=== PATIENT | female | born 1995 | race Caucasian/White ===

== ENCOUNTER 2020-03-11 18:30 | Emergency (ER) | payer SELFPAY ==
[~2020-03-11] VITALS: Ht 167.6 cm; Wt 59.0 kg
[2020-03-11 19:49] LABS: HEMATOCRIT 40.3 % (37.0-47.0); MEAN CELL VOLUME 91.8 fl (81.0-99.0); MEAN CORPUSCULAR HGB 31.7 pg (27.0-31.0); MEAN CORPUSCULAR HGB CONC 34.5 g/dl (33.0-37.0); MEAN PLATELET VOLUME 8.6 fl (9.6-12.3); PLATELET COUNT AUTOMATED 169 10*3/uL (130-400); RED BLOOD COUNT 4.39 10*6/uL (4.10-5.10); RED CELL DISTRI WIDTH 12.3 % (0-14.5)
[2020-03-11 19:57] LABS: BILIRUBIN NEGATIVE (NEGATIVE); BLOOD 3+ (NEGATIVE); CLARITY CLEAR (CLEAR); COLOR YELLOW (YELLOW); GLUCOSE NEGATIVE (NEGATIVE); KETONE NEGATIVE (NEGATIVE); LEUKO ESTERASE TRACE (NEGATIVE); NITRITE NEGATIVE (NEGATIVE); PH 7.5 (5.0-9.0); SPECIFIC GRAVITY 1.005 (1.005-1.030); UROBILINOGEN 0.2 E.U./dl (0.2-1.0)
[2020-03-11 20:00] LABS: BACTERIA 1+; RBC 16-20 rbc/hpf (0-2)
[2020-03-11 20:00] LABS: ALKALINE PHOSPHATASE 67 U/L (45-117); BUN 6 mg/dl (7-24); CHLORIDE 102 mmol/L (98-107); LIPASE 47 U/L (73-393); POTASSIUM 3.4 mmol/L (3.5-5.1); SGOT/AST 12 IU/L (3-35); SGPT/ALT 20 U/L (12-78); SODIUM 133 mmol/L (136-145); TOTAL PROTEIN 8.5 gm/dL (6.4-8.2); WHITE BLOOD COUNT 0.9 10*3/uL (4.8-10.8)
[2020-03-11 20:24] LABS: TOTAL CELLS COUNTED 100 #CELLS
[2020-03-11 20:25] LABS: PLATELET SUFFICIENCY NORMAL (NORMAL)
[2020-03-11 20:47] LABS: HEMATOCRIT 37.8 % (37.0-47.0); MEAN CELL VOLUME 91.7 fl (81.0-99.0); MEAN CORPUSCULAR HGB 31.3 pg (27.0-31.0); MEAN CORPUSCULAR HGB CONC 34.1 g/dl (33.0-37.0); MEAN PLATELET VOLUME 8.7 fl (9.6-12.3); PLATELET COUNT AUTOMATED 147 10*3/uL (130-400); RED BLOOD COUNT 4.12 10*6/uL (4.10-5.10); RED CELL DISTRI WIDTH 12.5 % (0-14.5)
[2020-03-11 21:26] LABS: PLATELET SUFFICIENCY NORMAL (NORMAL); TOTAL CELLS COUNTED 100 #CELLS
== END 2020-03-11 23:34 | disposition short-term general hospital (02) ==
LOC: ED 18:30
PROVIDERS: Physician Assistant
DX: O26.891 Other specified pregnancy related conditions, first trimester (principal); D70.9 Neutropenia, unspecified; Z3A.01 Less than 8 weeks gestation of pregnancy; Z20.828 Contact with and (suspected) exposure to other viral communicable diseases